=== PATIENT | female | born 1975 | race Caucasian/White ===

== ENCOUNTER 2018-01-09 21:09 | Emergency (ER) | payer BC, OTHER ==
[2018-01-09 21:29] VITALS: TEMP 98.2
[2018-01-09] MEDS ORDERED: KETOROLAC TROMETHAMINE INJ 60 MG/2 ML VIAL IM ONE (21:32)
[2018-01-09] MEDS ORDERED: MORPHINE SULFATE INJ 10 MG/ML VIAL IM ONE (21:33)
[2018-01-09] MEDS ORDERED: AMOXICILLIN & POT CLAVULANATE 875 MG TAB PO ONE (21:34)
--- NOTE | 2018-01-09 21:36 | ED.PDOC ---
History of Present Illness - General Chief Complaint: Dental/Mouth Stated Complaint: tootache Time Seen by Provider: 01/09/18 21:26 Source: patient, family Exam Limitations: no limitations - History of Present Illness Initial Comments: TOOTHACHE X 2 D. R UPPER JAW PAIN FROM R MAXILLARY WISDOM TOOTH. TOOK MOTRIN 600 AND OLD CODEINE RX FROM 2013, DIDN'T HELP. PT AND SEEM LIKE RELIABLE HISTORIANS AND NOT DRUG-SEEKING. Timing/Duration: gradual Severity: severe EENT Location: mouth, dental Prearrival Treatment: over the counter meds, prescription meds Improving Factors: nothing Worsening Factors: nothing Associated Symptoms: tooth pain Home Medications: Ambulatory Orders Acetaminophen W/ Codeine [Tylenol W/ CODEINE #3] 1 ea PO Q6H #15 01/09/18 Amoxicillin & Pot Clavulanate [Augmentin] 875 mg PO BID #14 tab 01/09/18 Review of Systems - Review of Systems Constitutional: Denies: chills, fever, malaise EENTM: Denies: eye pain, ear pain, nose pain, throat pain, mouth swelling Respiratory: States: no symptoms reported Cardiology: States: no symptoms reported Gastrointestinal/Abdominal: States: no symptoms reported Genitourinary: States: no symptoms reported Musculoskeletal: States: no symptoms reported Skin: States: no symptoms reported Neurological: States: no symptoms reported Endocrine: States: no symptoms reported Hematologic/Lymphatic: States: no symptoms reported All other Systems: Reviewed and Negative Past Medical History (General) - Patient Medical History Surgical History: appendectomy - Vaccination History Hx Tetanus, Diphtheria Vaccination: No Hx Influenza Vaccination: No Hx Pneumococcal Vaccination: No Immunizations Up to Date: No - Social History Hx Tobacco Use: No Hx Alcohol Use: Yes Hx Substance Use Treatment: No Physical Exam - Physical Exam General Appearance: Alert, Obvious distress Eye Exam: bilateral normal Ear Exam: bilateral ear: auricle normal, canal normal Nasal Exam: normal inspection Throat Exam: dental tenderness - R MAXILLARY MOLAR TTP; SEVERE DENTAL CARIES. POOR DENTITION. NO PALPABLE ABSCESS. SOFT TISSUES NTTP. Neck: non-tender, full range of motion, supple, normal inspection Cardiovascular/Respiratory: no JVD, no respiratory distress Neurologic: alert, normal mood/affect Skin Exam: normal color, warm/dry Progress - Progress Progress: 01/09/18 21:48 R MAXIALLARY DENTAL CARIES, POOR DENTITION. PT UNDERSTANDS HER NEED TO SEE A DENTIST. Departure - Departure Clinical Impression: Dental caries, Dental neglect, Odontalgia Disposition: Discharge to Home or Self Care Condition: Poor Departure Forms: ED Discharge - Pt. Copy, Patient Portal Self Enrollment Instructions: Tooth Decay, Adult (DC) Diet: resume usual diet Activity: increase activity as tolerated Prescriptions: Acetaminophen W/ Codeine [Tylenol W/ CODEINE #3] 1 ea PO Q6H #15 Amoxicillin & Pot Clavulanate [Augmentin] 875 mg PO BID #14 tab Home Medications: Ambulatory Orders Acetaminophen W/ Codeine [Tylenol W/ CODEINE #3] 1 ea PO Q6H #15 01/09/18 Amoxicillin & Pot Clavulanate [Augmentin] 875 mg PO BID #14 tab 01/09/18 Additional Instructions: Please see a dentist as soon as you are able to, as tooth decay can lead to additional health problems. I hope you feel better soon.
[2018-01-09 22:04] VITALS: BP 143/90; O2SAT 100
== END 2018-01-09 22:04 | disposition home or self-care (01) ==
LOC: ER 21:09
DX: K02.9 Dental caries, unspecified (principal)
CPT/HCPCS: J1885; J2270